=== PATIENT | male | born 1960 | race Caucasian/White ===

== ENCOUNTER 2018-01-05 07:13 | Inpatient (IN) | payer BC, OTHER ==
[~2018-01-05] VITALS: Ht 180.3 cm; Wt 106.1 kg
[2018-01-05] MEDS ORDERED: ROPI0.2537 PO (07:52)
[2018-01-05] MEDS ORDERED: LACTATED RINGERS 1,000 ML IV SCH (07:52)
[2018-01-05] MEDS ORDERED: LIDOCAINE-MPF 1%, 2ML ONE (07:54)
[2018-01-05] MEDS ORDERED: LIDOCAINE 1%, 2ML SQ PRN (08:00)
[2018-01-05] MEDS ORDERED: BUPIVACAINE/PF 0.5% ONE (09:01)
[2018-01-05] MEDS ORDERED: THROMBIN 5,000 UNIT VIAL TP ONE (09:01)
[2018-01-05] MEDS ORDERED: BACITRACIN 50,000 UNIT ONE (09:02)
[2018-01-05] MEDS ORDERED: EPINEPHRINE 1 MG/ML, 1ML ONE (09:02)
[2018-01-05] MEDS ORDERED: REMIFENTANIL 2 MG ONE (09:19)
[2018-01-05] MEDS ORDERED: PROPOFOL 50 ML ONE ×2 (09:23→10:35)
[2018-01-05] MEDS ORDERED: PHENYLEPHRINE 10 MG/ML ONE (09:26)
[2018-01-05] MEDS ORDERED: LIDOCAINE-MPF 2% ,5ML ONE (09:26)
[2018-01-05] MEDS ORDERED: ROCURONIUM 10 MG/ML,10ML ONE (09:26)
[2018-01-05] MEDS ORDERED: NEOSTIGMINE 1 MG/ML, 10ML ONE (09:29)
[2018-01-05] MEDS ORDERED: CEFAZOLIN 1,000 MG ONE (09:29)
[2018-01-05] MEDS ORDERED: GLYCOPYRROLATE 0.4 MG/2 ML, 2ML ONE (11:51)
[2018-01-05] MEDS ORDERED: ONDANSETRON 2MG/ML, 2ML ONE (12:03)
[2018-01-05] MEDS: FENTANYL PF 100 MCG/2ML IV PRN ×4 (12:09→12:39)
[2018-01-05] MEDS ORDERED: FENTANYL PF 100 MCG/2ML ONE (12:09)
[2018-01-05] MEDS ORDERED: HYDROcodone/APAP 7.5-325MG/15ML UDC PO PRN (12:30)
[2018-01-05] MEDS ORDERED: MEPERIDINE/PF 25MG/0.5ML IVPush PRN (12:30)
[2018-01-05] MEDS ORDERED: ONDANSETRON 2MG/ML, 2ML IVPush PRN (12:30)
[2018-01-05] MEDS ORDERED: GLYCOPYRROLATE 0.2MG/1ML, 5ML IVPush ONE (12:30)
[2018-01-05] MEDS ORDERED: OXYcodone 5 MG/5 ML ORAL.SOL UDC PO PRN (12:30)
[2018-01-05] MEDS ORDERED: morphine SULFATE 10 MG/ML, 1ML ONE (12:42)
[2018-01-05] MEDS: morphine SULFATE 10 MG/ML, 1ML IV PRN ×3 (12:45→13:13)
[2018-01-05] MEDS ORDERED: ACETAMINOPHEN 650 MG/20.3 ML UDC ONE (13:02)
[2018-01-05] MEDS ORDERED: OXYcodone 5 MG/5 ML ORAL.SOL UDC ONE (13:03)
[2018-01-05] MEDS ORDERED: ACETAMINOPHEN 650 MG/20.3 ML UDC PO PRN (13:30)
[2018-01-05] MEDS ORDERED: DIAZEPAM 5 MG/ML, 2ML IV ONE (13:30)
[2018-01-05 14:05] VITALS: BP 105/73
[2018-01-05] MEDS ORDERED: HYDROmorphone 2 MG/ML, 1ML IM PRN (15:00)
[2018-01-05] MEDS ORDERED: DIPHENHYDRAMINE 50 MG/ML, 1ML IM PRN (15:00)
[2018-01-05] MEDS ORDERED: DIAZEPAM MC SCH (15:00)
[2018-01-05] MEDS ORDERED: DIPHENHYDRAMINE 50 MG/ML, 1ML IVPush PRN (15:00)
[2018-01-05] MEDS ORDERED: BISACODYL 10 MG SUPP PR PRN (15:00)
[2018-01-05] MEDS ORDERED: ONDANSETRON 2MG/ML, 2ML IV PRN (15:00)
[2018-01-05] MEDS ORDERED: HYDROmorphone 2MG TABLET PO PRN (15:00)
[2018-01-05] MEDS ORDERED: MAGNESIUM HYDROXIDE 8%, 30ML UDC PO PRN (15:00)
[2018-01-05] MEDS ORDERED: PROMETHAZINE 25 MG/ML, 1ML IM PRN (15:00)
[2018-01-05] MEDS ORDERED: INSULIN REGULAR 100 UNITS/ML, 3ML VIAL SQ-INSULIN SCH (16:00)
[2018-01-05] MEDS ORDERED: DIAZEPAM 5 MG TABLET PO PRN (16:30)
[2018-01-05] MEDS: NS + 20MEQ KCL 1,000 ML IV SCH (17:32)
[2018-01-05] MEDS: CEFAZOLIN PMX 1GM/50ML 50 ML IVPB SCH (17:33)
[2018-01-05 20:05] VITALS: BP 137/84
[2018-01-05] MEDS ORDERED: ZOLPIDEM 5MG TABLET PO PRN (21:00)
[2018-01-05] MEDS: ROPINIROLE 0.25MG TABLET PO SCH (21:01)
[2018-01-06 00:49] VITALS: BP 156/91
[2018-01-06] MEDS: CEFAZOLIN PMX 1GM/50ML 50 ML IVPB SCH (00:59)
[2018-01-06] MEDS: NS + 20MEQ KCL 1,000 ML IV SCH (03:00)
[2018-01-06 03:01] VITALS: BP 160/95
[2018-01-06 06:55] VITALS: BP 148/87
[2018-01-06] MEDS: SENNA/DOCUSATE TABLET PO SCH (09:01)
[2018-01-06] MEDS: ROPINIROLE 0.25MG TABLET PO SCH ×2 (09:01→21:00)
[2018-01-06] MEDS: NICOTINE 21 MG/24 HR PATCH.TD24 TD SCH (09:58)
[2018-01-06] MEDS: METHOCARBAMOL 750 MG TABLET PO SCH ×3 (09:58→21:44)
[2018-01-06] MEDS: DIPHENHYDRAMINE 50 MG CAPSULE PO PRN ×2 (12:35→19:35)
[2018-01-06] MEDS: OXYcodone/APAP 5/325MG TABLET PO PRN ×3 (12:35→20:37)
[2018-01-06 13:09] VITALS: BP 150/91
[2018-01-06 19:09] VITALS: BP 147/87
[2018-01-06] MEDS ORDERED: ROPINIROLE 0.5MG TABLET ONE (21:40)
[2018-01-07 00:24] VITALS: BP 145/89
[2018-01-07] MEDS: OXYcodone/APAP 5/325MG TABLET PO PRN ×3 (00:33→08:27)
[2018-01-07 06:58] VITALS: BP 146/89
[2018-01-07] MEDS ORDERED: METH750T87 PO (08:16)
[2018-01-07] MEDS ORDERED: OXYC-302 PO (08:16)
[2018-01-07] MEDS ORDERED: ROPINIROLE 0.5MG TABLET ONE (08:22)
[2018-01-07] MEDS: METHOCARBAMOL 750 MG TABLET PO SCH (08:26)
[2018-01-07] MEDS: NICOTINE 21 MG/24 HR PATCH.TD24 TD SCH (08:27)
[2018-01-07] MEDS: ROPINIROLE 0.25MG TABLET PO SCH (08:27)
[2018-01-07] MEDS: SENNA/DOCUSATE TABLET PO SCH (08:27)
== END 2018-01-07 09:57 | disposition home or self-care (01) | DRG 473 ==
LOC: ORIP 07:13 → 4NOR 14:45 → DCLOUNGE 01-07 09:40
PROVIDERS: ADMIT Neurological Surgery; ATTEND Neurological Surgery
PROC: 00NW0ZZ Release Cervical Spinal Cord, Open Approach (ICD-10-PCS; 2018-01-05)
PROC: 4A11X4G Monitoring of Peripheral Nervous Electrical Activity, Intraoperative, External Approach (ICD-10-PCS; 2018-01-05)
PROC: 0RG10AJ Fusion of Cervical Vertebral Joint with Interbody Fusion Device, Posterior Approach, Anterior Column, Open Approach (ICD-10-PCS; principal; 2018-01-05 09:15)
DX: M47.12 Other spondylosis with myelopathy, cervical region (principal); F17.210 Nicotine dependence, cigarettes, uncomplicated; M48.02 Spinal stenosis, cervical region
CPT/HCPCS: 36415; 72040; 86850; 86900; 86923; C1713; J0171; J0690; J2270; J2405; J2704; J2710; J3010; J3360; J3480; J3490; J2370; J7120